=== PATIENT | female | born 1960 | race Hispanic/Latino ===

== ENCOUNTER 2016-11-22 15:21 | Emergency (ER) | payer SELFPAY ==
[~2016-11-22] VITALS: Ht 157.5 cm; Wt 67.0 kg
[2016-11-22] MEDS ORDERED: ONDANSETRON ODT8 MG PO (18:25)
== END 2016-11-22 18:36 | disposition home or self-care (01) ==
LOC: ED 15:21
DX: R10.11 Right upper quadrant pain (principal); Z90.710 Acquired absence of both cervix and uterus; Z88.0 Allergy status to penicillin
CPT/HCPCS: 80053; 81001; 83690; 85025; 96374; 96375; 99283; J1885; J2405; J7030